=== PATIENT | female | born 1980 | race Caucasian/White ===

== ENCOUNTER 2017-05-29 11:55 | Inpatient (IN) | payer OTHER ==
[2017-05-29] MEDS ORDERED: Nalbuphine 10 MG/1 ML Vial IVPUSH PRN (17:14)
[2017-05-29] MEDS ORDERED: Water For Irrigation,Sterile 1,000 ML Container IRR PRN (17:14)
[2017-05-29] MEDS ORDERED: Sodium Chloride 0.9% 10 ML Syringe FLUSH PRN (17:14)
[2017-05-29] MEDS ORDERED: Terbutaline 1 MG/ML SDV SUBCUT PRN (17:14)
[2017-05-29] MEDS ORDERED: Lidocaine 1% 50 ML MDV INJECT PRN (17:14)
[2017-05-29] MEDS ORDERED: Sodium Chloride 0.9% 2.5 ML Syringe FLUSH PRN (17:14)
[2017-05-29] MEDS ORDERED: Butorphanol 1 MG/ML SDV IVPUSH PRN (17:14)
[2017-05-29] MEDS ORDERED: Misoprostol 200 MCG Tab PO PRN (17:14)
[2017-05-29] MEDS ORDERED: Misoprostol 25 MCG (1/4 of 100 MCG) Tab VAG PRN (17:14)
[2017-05-29] MEDS ORDERED: Methylergonovine 0.2 MG/1 ML Amp IM PRN (17:14)
[2017-05-29] MEDS ORDERED: Carboprost Tromethamine 250 MCG/1 ML Amp IM PRN (17:14)
[2017-05-29] MEDS ORDERED: Oxytocin/Lactated Ringers 30 UNIT/500 ML BAG IV SCH ×2 (17:15)
[2017-05-29] MEDS ORDERED: Misoprostol 25 MCG (1/4 of 100 MCG) Tab VAG SCH (17:15)
[2017-05-29] MEDS: Lactated Ringers 1,000 ML IV SCH (17:40)
[2017-05-30] MEDS: Lactated Ringers 1,000 ML IV SCH ×3 (08:44→11:11)
--- NOTE | 2017-05-30 09:28 | PCM.PREANE ---
Preanesthetic Assessment - Anesthesia/Transfusion/Family Hx Anesthesia History: Prior Anesthesia Without Reaction - Review of Systems General: No Symptoms Pulmonary: No Symptoms Cardiovascular: No Symptoms Gastrointestinal: No Symptoms Neurological: No Symptoms Other: Reports: None - Physical Assessment Height: 5 ft 5.5 in Weight: 78.925 kg ASA Class: 2 Mental Status: Alert & Oriented x3 Airway Class: Mallampati = 2 Dentition: Reports: Normal Dentition Thyro-Mental Finger Breadths: 3 Mouth Opening Finger Breadths: 3 ROM/Head Extension: Full Lungs: Clear to Auscultation, Normal Respiratory Effort Cardiovascular: Regular Rate, Regular Rhythm - Lab Values: Laboratory Last Values WBC 9.24 K/uL (4.0-11.0) 05/29/17 17: RBC 3.59 M/uL (4.30-5.90) L 05/29/17 17:31 Hgb 11.5 g/dL (12.0-16.0) L 05/29/17 17: Hct 32.9 % (36.0-46.0) L 05/29/17 17: MCV 91.6 fL (80.0-98.0) 05/29/17 17: MCH 32.0 pg (27.0-32.0) 05/29/17 17: MCHC 35.0 g/dL (31.0-37.0) 05/29/17 17:31 RDW Std Deviation 44.2 fl (28.0-62.0) 05/29/17 17:31 RDW Coeff of Jodi 13 % (11.0-15.0) 05/29/17 17: Plt Count 213 K/uL (150-400) 05/29/17 17:31 MPV 11.20 fL (7.40-12.00) 05/29/17 17:31 Nucleated RBC % 0.0 /100WBC 05/29/17 17:31 Nucleated RBCs # 0 K/uL 05/29/17 17:31 Blood Type A POSITIVE 05/29/17 17:31 Antibody Screen NEGATIVE 05/29/17 17:31 - Allergies Allergies/Adverse Reactions: Allergies Allergy/AdvReac Type Severity Reaction Status Date / Time No Known Allergies Allergy Verified 05/12/16 12:57 - Acknowledgements Anesthesia Type Planned: Epidural Pt an Appropriate Candidate for the Planned Anesthesia: Yes Alternatives and Risks of Anesthesia Discussed w Pt/Guardian: Yes Pt/Guardian Understands and Agrees with Anesthesia Plan: Yes PreAnesthesia Questionnaire HEENT History: Reports: None Cardiovascular History: Reports: None Respiratory History: Reports: None Gastrointestinal History: Reports: GERD Genitourinary History: Reports: None [employer]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: Reports: : 4 Para: 3 LMP (Approximate): Other OB/BYN History: 3 preg - 3 births Musculoskeletal History: Reports: None Neurological History: Reports: None Psychiatric History: Reports: None Endocrine/Metabolic History: Reports: None Hematologic History: Reports: None Immunologic History: Reports: None Oncologic (Cancer) History: Reports: None - Infectious Disease History Infectious Disease History: Reports: Chicken Pox, Mononucleosis - Past Surgical History GI Surgical History: Reports: Appendectomy - SUBSTANCE USE Smoking Status *Q: Never Smoker Second Hand Smoke Exposure: No Recreational Drug Use History: No - HOME MEDS Home Medications: Home Meds Amoxicillin 500 mg PO BID #20 tab 05/12/16 [Rx] Hydrocort/Neomycin/Polymyxin B [Cortisporin Otic Susp] 2 drop EARRT QID #1 bottle 05/12/16 [Rx] Prednisone [IJD: predniSONE] 1 tab PO WITHBREAKFAST #7 tab 05/12/16 [Rx] guaiFENesin/Codeine Phosphate [Cheratussin AC Syrup] 10 ml PO Q6HR #240 liquid 05/12/16 [Rx] - CURRENT (IN HOUSE) MEDS Current Meds: Current Medications Butorphanol Tartrate (Stadol) 1 mg IVPUSH Q1H PRN PRN Reason: Pain Carboprost Tromethamine (Hemabate Ds) 250 mcg IM ASDIRECTED PRN PRN Reason: Post Hemorrhage Lactated Ringer's (Ringers, Lactated) 1,000 mls @ 150 mls/hr IV ASDIRECTED ELISA Last Admin: 05/30/17 08:44 Dose: 150 mls/hr Oxytocin/Lactated Ringer's (Pitocin In Lr 30 Units/500 Ml) 30 unit in 500 mls @ 2 mls/hr IV TITRATE ELISA; 2 MUNITS/MIN PRN Reason: Protocol Stop: 05/30/17 17:14 Oxytocin/Lactated Ringer's (Pitocin In Lr 30 Units/500 Ml) 30 unit in 500 mls @ 2 mls/hr IV TITRATE ELISA; 2 MUNITS/MIN PRN Reason: Protocol Last Admin: 05/30/17 06:55 Dose: 2 munits/min, 2 mls/hr Lidocaine HCl (Xylocaine 1%) 50 ml INJECT .ONCE PRN PRN Reason: Laceration repair Methylergonovine Maleate (Methergine) 0.2 mg IM ASDIRECTED PRN PRN Reason: Post Hemorrhage Misoprostol (Cytotec) 200 mcg PO .ONCE PRN PRN Reason: Post Hemorrhage Misoprostol (Cytotec) 25 mcg VAG .ONCE ELISA Last Admin: 05/29/17 17:53 Dose: 25 mcg Misoprostol (Cytotec) 25 mcg VAG Q6H PRN PRN Reason: Cervical Ripening Stop: 05/31/17 11:15 Last Admin: 05/30/17 00:14 Dose: 25 mcg Sodium Chloride (Saline Flush) 10 ml FLUSH ASDIRECTED PRN PRN Reason: Keep Vein Open Sodium Chloride (Saline Flush) 2.5 ml FLUSH ASDIRECTED PRN PRN Reason: Keep Vein Open Sterile Water (Sterile Water For Irrigation) 1,000 ml IRR ASDIRECTED PRN PRN Reason: delivery Terbutaline Sulfate (Brethine) 0.25 mg SUBCUT ASDIRECTED PRN PRN Reason: Tacysystole Discontinued Medications Nalbuphine HCl (Nubain) 10 mg IVPUSH Q1H PRN PRN Reason: Pain (severe 7-10) Stop: 05/29/17 19:15
[2017-05-30] MEDS ORDERED: fentaNYL 100 MCG/2 ML SDV ONE (09:30)
[2017-05-30] MEDS ORDERED: Ropivacaine HCl/PF 100 ML ONE (09:30)
[2017-05-30] MEDS ORDERED: ePHEDrine 50 MG/ML SDV ONE (09:52)
[2017-05-30] MEDS ORDERED: Docusate Sodium 100 MG Cap PO PRN (12:29)
[2017-05-30] MEDS ORDERED: Witch Hazel Medicated Pads 40/Jar TOP PRN (12:29)
[2017-05-30] MEDS ORDERED: Methylergonovine 0.2 MG/1 ML Amp IM PRN (12:29)
[2017-05-30] MEDS ORDERED: Bisacodyl 10 MG Supp RECTAL PRN (12:29)
[2017-05-30] MEDS ORDERED: Lanolin 100% Cream 7 GM Tube TOP PRN (12:29)
[2017-05-30] MEDS ORDERED: Benzocaine/Menthol 20%-0.5% Spray 78 GM Cannister TOP PRN (12:29)
[2017-05-30] MEDS: Ibuprofen 800 MG Tab PO PRN (15:59)
--- NOTE | 2017-05-30 16:52 | OR ---
SURGEON: Maria Guadalupe Nixon M.D. DATE OF PROCEDURE: 05/30/2017 PREOPERATIVE DIAGNOSIS: A 39 and 3/7th weeks intrauterine , lives remote from the hospital with vulvar lesion. POSTOPERATIVE DIAGNOSIS: A 39 and 3/7th weeks intrauterine , lives remote from the hospital with vulvar lesion. PROCEDURES: Cytotec and Pitocin induction of labor, term spontaneous vaginal delivery with repair of second-degree laceration and excision of a vulvar cyst. ANESTHESIA: Epidural. ESTIMATED BLOOD LOSS: Less than 300 mL. FINDINGS: Live born female, score 8 and 9. Weight is pending at the time of dictation. The placenta was spontaneous, Schultze intact with 3 vessels. There was a second-degree perineal laceration over the area of prior laceration where there was a 3 cm inflammatory cyst from prior suture which was excised. COMPLICATIONS: None known. DISPOSITION: Mother and baby are in stable in LDRP. BRIEF HISTORY: This is a 37-year-old female G4, P3. She presents at 39 and 3/7th weeks' gestation for induction of labor, living approximately 1 hour from the facility. While her inductions are prolonged, her labor after 4 cm is very fast and therefore, she presents for history of rapid labors. She has a known cyst within the vulva. We discussed if it is appropriate excising this at the time of delivery. She was admitted to Labor and Delivery. She was 1 cm and very thick. She received 2 doses of Cytotec, by morning, she was 4 cm. She received an epidural for pain control. Pitocin was started at 2 milliunits per minute and was not increased. She had spontaneous rupture of membranes. She is group B strep negative. She had category 1 heart tones throughout labor until the last 10 minutes when she was pushing and she progressed to complete. DESCRIPTION OF PROCEDURE: With the patient in dorsal lithotomy position, under adequate epidural analgesia, the patient pushed over a 10-minute time period to a 5+ station, at which time the head was delivered spontaneously and atraumatically over the perineum with support with subsequent delivery of the infant's shoulders and body without any difficulty. The was bulb suctioned by nose and mouth and handed to the mother in the presence of the nurse attending delivery. The infant was a liveborn female, score 8 and 9. Weight is pending at the time of dictation. After the cord had ceased to pulsate, it was doubly clamped and cut. The cord blood was collected for cord ABGs as well as routine cord blood sampling. Pitocin was initiated after delivery of the infant to assist with delivery of the placenta which was delivered spontaneously, Schultze intact with 3 vessels. Upon inspection of the pelvis and perineum, there was a small second-degree laceration, however, this was immediately over a very large perineal cyst and I did confirm with the patient that she desired excision of the cyst at this time. Therefore, the cyst wall was completely excised intact and the cyst was not broken. The perineal laceration was repaired with a running locked suture of 2-0 Caprosyn for the vaginal mucosa. A deep running suture of the same for the perineum and to close the defect from the cyst and a running subcuticular suture of the same for the skin. Final sponge, needle, and instrument count were correct. There were no known complications. Manly and mother are in LDRP in good condition. ALVARO / IRMA /[id number]
[2017-05-30] MEDS: Acetaminophen 500 MG Tab PO PRN (19:36)
[2017-05-31] MEDS: Ibuprofen 800 MG Tab PO PRN (06:54)
[2017-05-31] MEDS: oxyCODONE 5 MG Tab PO PRN ×2 (06:55→11:56)
--- NOTE | 2017-05-31 07:37 | PCM48HPAN ---
Post Anesthesia Note - EVALUATION WITHIN 48HRS OF ANESTHETIC Vital Signs in Normal Range: Yes Patient Participated in Evaluation: Yes Respiratory Function Stable: Yes Airway Patent: Yes Cardiovascular Function Stable: Yes Hydration Status Stable: Yes Pain Control Satisfactory: Yes Nausea and Vomiting Control Satisfactory: Yes Mental Status Recovered: Yes
[2017-05-31 07:48] VITALS: BP 102/70
--- NOTE | 2017-05-31 08:23 | PCM.PNPP ---
[id number] Status: Reports: Pain Controlled, Tolerating Diet, Ambulating, Urinating - Review of Systems General: Denies: Fever Pulmonary: Denies: Shortness of Breath, Pleuritic Chest Pain, Cough Cardiovascular: Denies: Chest Pain, Palpitations, Dyspnea on Exertion Gastrointestinal: Denies: Abdominal Pain Genitourinary: Denies: Dysuria Psychiatric: Reports: No Symptoms - General Info Date of Service: 05/31/17 - Patient Data Vital Signs - most recent: Last Vital Signs Temp 36.6 C 05/31/17 07:44 Pulse 69 05/31/17 07:44 Resp 16 05/31/17 07:44 BP 102/70 05/31/17 07:44 Pulse Ox 97 05/31/17 07:44 Weight - most recent: 78.925 kg Lab Results - last 24 hrs: Laboratory Results - last 24 hr 05/31/17 Range/Units 04:40 Hgb 10.8 L (12.0-16.0) g/dL Hct 31.9 L (36.0-46.0) % Med Orders - Current: Current Medications Acetaminophen (Tylenol Extra Strength) 1,000 mg PO Q4H PRN PRN Reason: Pain Last Admin: 05/30/17 19:36 Dose: 1,000 mg Benzocaine/Menthol (Dermoplast Pain Relief 20%-0.5% [place]) 78 gm TOP ASDIRECTED PRN PRN Reason: Perineal Comfort Measure Last Admin: 05/30/17 13:36 Dose: 1 can Bisacodyl (Dulcolax) 10 mg RECTAL .ONCE PRN PRN Reason: Constipation Docusate Sodium (Colace) 100 mg PO BID PRN PRN Reason: Constipation Last Admin: 05/30/17 21:06 Dose: 100 mg Emollient Ointment (Lansinoh Hpa) 0 gm TOP ASDIRECTED PRN PRN Reason: Sore Nipples Last Admin: 05/30/17 13:36 Dose: 1 tube Ibuprofen (Motrin) 800 mg PO Q6H PRN PRN Reason: Pain Last Admin: 05/31/17 06:54 Dose: 800 mg Methylergonovine Maleate (Methergine) 0.2 mg IM .ONCE PRN PRN Reason: Excessive Vaginal Bleeding Oxycodone HCl (Oxycodone) 5 mg PO Q2H PRN PRN Reason: Pain Last Admin: 05/31/17 06:55 Dose: 5 mg Witch Paz (Tucks) 1 pad TOP ASDIRECTED PRN PRN Reason: comfort care Last Admin: 05/30/17 13:36 Dose: 1 tub Discontinued Medications Butorphanol Tartrate (Stadol) 1 mg IVPUSH Q1H PRN PRN Reason: Pain Carboprost Tromethamine (Hemabate Ds) 250 mcg IM ASDIRECTED PRN PRN Reason: Post Hemorrhage Ephedrine Sulfate (Ephedrine Sulfate) Confirm Administered Dose 50 mg .ROUTE .STK-MED ONE Stop: 05/30/17 09:53 Fentanyl (Sublimaze) Confirm Administered Dose 100 mcg .ROUTE .STK-MED ONE Stop: 05/30/17 09:31 Lactated Ringer's (Ringers, Lactated) 1,000 mls @ 150 mls/hr IV ASDIRECTED ELISA Last Admin: 05/30/17 11:11 Dose: 150 mls/hr Oxytocin/Lactated Ringer's (Pitocin In Lr 30 Units/500 Ml) 30 unit in 500 mls @ 2 mls/hr IV TITRATE ELISA; 2 MUNITS/MIN PRN Reason: Protocol Stop: 05/30/17 17:14 Oxytocin/Lactated Ringer's (Pitocin In Lr 30 Units/500 Ml) 30 unit in 500 mls @ 2 mls/hr IV TITRATE ELISA; 2 MUNITS/MIN PRN Reason: Protocol Last Titration: 05/30/17 11:56 Dose: 999 mls/hr Ropivacaine (Naropin 0.2%) Confirm Administered Dose 100 mls @ as directed .ROUTE .STK-MED ONE Stop: 05/30/17 09:31 Lidocaine HCl (Xylocaine 1%) 50 ml INJECT .ONCE PRN PRN Reason: Laceration repair Methylergonovine Maleate (Methergine) 0.2 mg IM ASDIRECTED PRN PRN Reason: Post Hemorrhage Misoprostol (Cytotec) 200 mcg PO .ONCE PRN PRN Reason: Post Hemorrhage Misoprostol (Cytotec) 25 mcg VAG .ONCE ELISA Last Admin: 05/29/17 17:53 Dose: 25 mcg Misoprostol (Cytotec) 25 mcg VAG Q6H PRN PRN Reason: Cervical Ripening Stop: 05/31/17 11:15 Last Admin: 05/30/17 00:14 Dose: 25 mcg Nalbuphine HCl (Nubain) 10 mg IVPUSH Q1H PRN PRN Reason: Pain (severe 7-10) Stop: 05/29/17 19:15 Sodium Chloride (Saline Flush) 10 ml FLUSH ASDIRECTED PRN PRN Reason: Keep Vein Open Sodium Chloride (Saline Flush) 2.5 ml FLUSH ASDIRECTED PRN PRN Reason: Keep Vein Open Sterile Water (Sterile Water For Irrigation) 1,000 ml IRR ASDIRECTED PRN PRN Reason: delivery Last Admin: 05/30/17 13:36 Dose: 1,000 ml Terbutaline Sulfate (Brethine) 0.25 mg SUBCUT ASDIRECTED PRN PRN Reason: Tacysystole - Interaction Infant Disposition, : in Room with Family Interaction: Holding Feeding: Attempted ; Nursed Fair/Poor Support Person: - Recovery Exam Fundal Tone: Firm Fundal Level: At Umbilicus Fundal Placement: Left Lochia Amount: Scant Lochia Color: Rubra/Red Perineum Description: Intact, Minimal Bruising/Swelling Episiotomy/Laceration: Approximated Bladder Status: Voiding Urinary Elimination: Voided - Exam General: alert, oriented Neck: supple Lungs: Clear to Auscultation, Normal Respiratory Effort Cardiovascular: Regular Rate, Regular Rhythm GI/Abdominal Exam: Normal Bowel Sounds, Soft, Non-Tender, No Organomegaly, No Distention, No Abnormal Bruit, No Mass, Pelvis Stable Extremities: No Pedal Edema Psy/Mental Status: alert, normal affect, normal mood - Problem List & Annotations (1) Vaginal delivery SNOMED Code(s): 902231435 Code(s): O80 - ENCOUNTER FOR FULL-TERM UNCOMPLICATED DELIVERY Status: Acute Current Visit: Yes - Problem List Review Problem List Initiated/Reviewed/Updated: Yes - Assessment Assessment:: PPD#1 from . Minimal pain and lochia. Breast feeding well. Discharge home today. - Plan Plan:: Discharge instructions reviewed. Nothing in the vagina for 6 weeks. RX for Percocet to use as needed for pain. Continue PNV while breast feeding. Instructed patient to call if she develops fever greater than 101 or bleeding through a large pad an hour. F/U with [facility] in 6 weeks. <Maria Guadalupe Nixon - Last Filed: 05/31/17 10:04> - Patient Data Vital Signs - most recent: Last Vital Signs Temp 36.6 C 05/31/17 07:44 Pulse 69 05/31/17 07:44 Resp 16 05/31/17 07:44 BP 102/70 05/31/17 07:44 Pulse Ox 97 05/31/17 07:44 Lab Results - last 24 hrs: Laboratory Results - last 24 hr 05/31/17 Range/Units 04:40 Hgb 10.8 L (12.0-16.0) g/dL Hct 31.9 L (36.0-46.0) % Med Orders - Current: Current Medications Acetaminophen (Tylenol Extra Strength) 1,000 mg PO Q4H PRN PRN Reason: Pain Last Admin: 05/30/17 19:36 Dose: 1,000 mg Benzocaine/Menthol (Dermoplast Pain Relief 20%-0.5% [place]) 78 gm TOP ASDIRECTED PRN PRN Reason: Perineal Comfort Measure Last Admin: 05/30/17 13:36 Dose: 1 can Bisacodyl (Dulcolax) 10 mg RECTAL .ONCE PRN PRN Reason: Constipation Docusate Sodium (Colace) 100 mg PO BID PRN PRN Reason: Constipation Last Admin: 05/30/17 21:06 Dose: 100 mg Emollient Ointment (Lansinoh Hpa) 0 gm TOP ASDIRECTED PRN PRN Reason: Sore Nipples Last Admin: 05/30/17 13:36 Dose: 1 tube Ibuprofen (Motrin) 800 mg PO Q6H PRN PRN Reason: Pain Last Admin: 05/31/17 06:54 Dose: 800 mg Methylergonovine Maleate (Methergine) 0.2 mg IM .ONCE PRN PRN Reason: Excessive Vaginal Bleeding Oxycodone HCl (Oxycodone) 5 mg PO Q2H PRN PRN Reason: Pain Last Admin: 05/31/17 06:55 Dose: 5 mg Witch Paz (Tucks) 1 pad TOP ASDIRECTED PRN PRN Reason: comfort care Last Admin: 05/30/17 13:36 Dose: 1 tub Discontinued Medications Butorphanol Tartrate (Stadol) 1 mg IVPUSH Q1H PRN PRN Reason: Pain Carboprost Tromethamine (Hemabate Ds) 250 mcg IM ASDIRECTED PRN PRN Reason: Post Hemorrhage Ephedrine Sulfate (Ephedrine Sulfate) Confirm Administered Dose 50 mg .ROUTE .STK-MED ONE Stop: 05/30/17 09:53 Fentanyl (Sublimaze) Confirm Administered Dose 100 mcg .ROUTE .STK-MED ONE Stop: 05/30/17 09:31 Lactated Ringer's (Ringers, Lactated) 1,000 mls @ 150 mls/hr IV ASDIRECTED ELISA Last Admin: 05/30/17 11:11 Dose: 150 mls/hr Oxytocin/Lactated Ringer's (Pitocin In Lr 30 Units/500 Ml) 30 unit in 500 mls @ 2 mls/hr IV TITRATE ELISA; 2 MUNITS/MIN PRN Reason: Protocol Stop: 05/30/17 17:14 Oxytocin/Lactated Ringer's (Pitocin In Lr 30 Units/500 Ml) 30 unit in 500 mls @ 2 mls/hr IV TITRATE ELISA; 2 MUNITS/MIN PRN Reason: Protocol Last Titration: 05/30/17 11:56 Dose: 999 mls/hr Ropivacaine (Naropin 0.2%) Confirm Administered Dose 100 mls @ as directed .ROUTE .STK-MED ONE Stop: 05/30/17 09:31 Lidocaine HCl (Xylocaine 1%) 50 ml INJECT .ONCE PRN PRN Reason: Laceration repair Methylergonovine Maleate (Methergine) 0.2 mg IM ASDIRECTED PRN PRN Reason: Post Hemorrhage Misoprostol (Cytotec) 200 mcg PO .ONCE PRN PRN Reason: Post Hemorrhage Misoprostol (Cytotec) 25 mcg VAG .ONCE ELISA Last Admin: 05/29/17 17:53 Dose: 25 mcg Misoprostol (Cytotec) 25 mcg VAG Q6H PRN PRN Reason: Cervical Ripening Stop: 05/31/17 11:15 Last Admin: 05/30/17 00:14 Dose: 25 mcg Nalbuphine HCl (Nubain) 10 mg IVPUSH Q1H PRN PRN Reason: Pain (severe 7-10) Stop: 05/29/17 19:15 Sodium Chloride (Saline Flush) 10 ml FLUSH ASDIRECTED PRN PRN Reason: Keep Vein Open Sodium Chloride (Saline Flush) 2.5 ml FLUSH ASDIRECTED PRN PRN Reason: Keep Vein Open Sterile Water (Sterile Water For Irrigation) 1,000 ml IRR ASDIRECTED PRN PRN Reason: delivery Last Admin: 05/30/17 13:36 Dose: 1,000 ml Terbutaline Sulfate (Brethine) 0.25 mg SUBCUT ASDIRECTED PRN PRN Reason: Tacysystole - Problem List Review Problem List Initiated/Reviewed/Updated: Yes - My Orders Last 24 Hours: My Active Orders 05/30/17 12:29 Patient Status [ADT] Routine May Shower [RC] ASDIRECTED Up ad Tiffany [RC] ASDIRECTED Vital Signs [RC] PER UNIT ROUTINE Acetaminophen [Tylenol Extra Strength] 1,000 mg PO Q4H PRN Benzocaine/Menthol [Dermoplast Pain Relief 20%-0.5% [place]] 78 gm TOP ASDIRECTED PRN Bisacodyl [Dulcolax] 10 mg RECTAL .ONCE PRN Docusate Sodium [Colace] 100 mg PO BID PRN Ibuprofen [Motrin] 800 mg PO Q6H PRN Lanolin [Lansinoh HPA] See Dose Instructions TOP ASDIRECTED PRN Methylergonovine [Methergine] 0.2 mg IM .ONCE PRN Witch Paz [Tucks] 1 pad TOP ASDIRECTED PRN oxyCODONE 5 mg PO Q2H PRN Assess Lochia [WOMSER] Per Unit Routine Assess Uterine Involution [WOMSER] Per Unit Routine Peripheral IV Discontinue [OM.PC] Routine Resuscitation Status Routine 05/30/17 12:30 Perineal Care [OM.PC] Per Unit Routine 05/30/17 Lunch Regular Diet [DIET] - Plan Plan:: patient seen and examined, agree with above.
[2017-05-31] MEDS: Acetaminophen 500 MG Tab PO PRN (11:56)
== END 2017-05-31 14:45 | disposition home or self-care (01) | DRG 775 ==
LOC: MW.OB 11:55 → OBSVTOIN 05-30 11:55
PROVIDERS: ADMIT Obstetrics & Gynecology; ATTEND Obstetrics & Gynecology
PROC: 10E0XZZ Delivery of Products of Conception, External Approach (ICD-10-PCS; principal; 2017-05-30)
PROC: 0KQM0ZZ Repair Perineum Muscle, Open Approach (ICD-10-PCS; 2017-05-30)
PROC: 0UBMXZZ Excision of Vulva, External Approach (ICD-10-PCS; 2017-05-30)
PROC: 3E0P7GC Introduction of Other Therapeutic Substance into Female Reproductive, Via Natural or Artificial Opening (ICD-10-PCS; 2017-05-30)
PROC: 3E033VJ Introduction of Other Hormone into Peripheral Vein, Percutaneous Approach (ICD-10-PCS; 2017-05-30)
DX: O70.1 Second degree perineal laceration during delivery (principal); Z37.0 Single live birth; O09.523 Supervision of elderly multigravida, third trimester; O34.73 Maternal care for abnormality of vulva and perineum, third trimester; D49.89 Neoplasm of unspecified behavior of other specified sites; Z3A.39 39 weeks gestation of pregnancy
CPT/HCPCS: 01967; 36415; 59025; 85014; 85018; 85027; 86850; 86900; 86901; 88305; A9270-GY; J7120

== ENCOUNTER 2024-05-05 06:17 | Day surgery (SDC) | payer OTHER ==
[2024-05-05] MEDS: Lactated Ringers 1,000 ML IV SCH (06:46)
[2024-05-05] MEDS: Scopalamine 1mg/3day Transdermal Patch TOP ONE (07:00)
[2024-05-05] MEDS ORDERED: Bupivacaine 0.25% 30 ML SDV ONE (07:22)
[2024-05-05] MEDS ORDERED: Methylene Blue 100 MG/10 ML SDV ONE (07:22)
[2024-05-05] MEDS ORDERED: ceFAZolin 2 GM Vial ONE (07:26)
[2024-05-05] MEDS ORDERED: propofoL 50 ML ONE ×2 (07:26→08:54)
[2024-05-05] MEDS ORDERED: fentaNYL 250 MCG/5 ML SDV ONE ×3 (07:27→07:41)
[2024-05-05] MEDS ORDERED: Propofol 200 MG/20 ML SDV ONE ×2 (07:27→09:34)
[2024-05-05] MEDS ORDERED: fentaNYL 50 MCG/ML SDV IVPUSH PRN ×2 (07:30→07:38)
[2024-05-05] MEDS ORDERED: Metoclopramide 10 MG/2 ML SDV IVPUSH PRN ×2 (07:30→07:38)
[2024-05-05] MEDS ORDERED: Ondansetron 4 MG/2 ML SDV IVPUSH PRN ×3 (07:30→12:13)
[2024-05-05] MEDS ORDERED: Albuterol 0.083% 2.5 MG/3 ML Neb Soln NEB PRN ×2 (07:30→07:38)
[2024-05-05] MEDS ORDERED: droPERidol 5 MG/2 ML SDV IVPUSH PRN ×2 (07:30→07:38)
[2024-05-05] MEDS ORDERED: Morphine 2 MG/ML SYRINGE IVPUSH PRN ×3 (07:30→12:15)
[2024-05-05] MEDS ORDERED: HYDROmorphone 1 MG/ML Syringe IVPUSH PRN ×2 (07:30→07:38)
[2024-05-05] MEDS ORDERED: Naloxone 0.4 MG/ML SDV IVPUSH PRN ×2 (07:30→07:38)
[2024-05-05] MEDS ORDERED: Dexamethasone 4 MG/ML 5 ML MDV ONE (07:34)
[2024-05-05] MEDS ORDERED: Rocuronium Bromide 50 MG/5 ML Syringe ONE ×3 (07:34→09:24)
[2024-05-05] MEDS ORDERED: Water For Injection, Sterile 20 ML ONE (07:34)
[2024-05-05] MEDS ORDERED: dexmedeTOMIDine HCl 200 MCG/2 ML SDV ONE (07:34)
[2024-05-05] MEDS ORDERED: Ondansetron 4 MG/2 ML SDV ONE (07:34)
[2024-05-05] MEDS ORDERED: Lidocaine 1% 5 ML VIAL ONE (07:37)
[2024-05-05] MEDS ORDERED: Ketamine HCL/NACL, ISO-OSM 50 MG/5 ML Syringe ONE (07:40)
[2024-05-05] MEDS ORDERED: Ketorolac 30 MG/ML SDV IVPUSH SCH (08:00)
[2024-05-05] MEDS ORDERED: Magnesium Sulfate (4.06 MEQ/ML) 5 GM/10 ML SDV ONE (08:07)
[2024-05-05] MEDS ORDERED: ePHEDrine 50 MG/ML SDV ONE (08:15)
[2024-05-05] MEDS ORDERED: Tranexamic Acid 1,000 MG/10 ML Vial ONE (08:56)
[2024-05-05] MEDS ORDERED: Furosemide 40 MG/4 ML VIAL ONE (09:15)
[2024-05-05] MEDS ORDERED: Fluorescein 5 ML Vial ONE (09:15)
[2024-05-05] MEDS ORDERED: Sugammadex Sodium 200 MG/2 ML VIAL IV ONE (09:19)
[2024-05-05] MEDS ORDERED: Ropivacaine 0.5% 5 MG/ML 30 ML SDV ONE (09:27)
[2024-05-05] MEDS ORDERED: Promethazine 25 MG/ML SDV IM PRN (12:13)
[2024-05-05] MEDS ORDERED: Lactated Ringers 1,000 ML IV SCH (12:30)
[2024-05-05] MEDS: Ketorolac 30 MG/ML SDV IVPUSH SCH (17:43)
[2024-05-05] MEDS: Ketorolac 30 MG/ML SDV ONE (23:24)
[2024-05-06] MEDS: Acetaminophen/oxyCODONE 325-5 MG Tab PO PRN (02:19)
[2024-05-06 06:12] LABS: BASOPHILS ABSOLUTE AUTO 0.02 K/uL (0.00-0.20); BASOPHILS PERCENT AUTO 0.2 % (0.0-1.0); HEMATOCRIT 30.7 % (37.0-47.0); HEMOGLOBIN 10.4 g/dL (12.0-16.0); IMMATURE GRAN ABSOLUTE AUTO 0.03 K/uL (0.00-0.05); IMMATURE GRAN PERCENT AUTO 0.3 % (0.0-0.4); LYMPHOCYTES ABSOLUTE AUTO 2.33 K/uL (1.00-4.80); LYMPHOCYTES PERCENT AUTO 25.4 % (24.0-44.0); MEAN CORPUSCULAR HEMOGLOBIN 32.3 pg (28.0-32.0); MEAN CORPUSCULAR HGB CONC 33.9 g/dL (32.0-36.0); MEAN CORPUSCULAR VOLUME 95.3 fL (83.0-99.0); MONOCYTES ABSOLUTE AUTO 0.52 K/uL (0.00-0.80); MONOCYTES PERCENT AUTO 5.7 % (0.0-8.0); NEUTROPHILS ABSOLUTE AUTO 6.26 K/uL (1.80-7.70); NEUTROPHILS PERCENT AUTO 68.4 % (41.0-71.0); PLATELET COUNT,PLT 257 K/uL (150-400); RED BLOOD CELL COUNT 3.22 M/uL (4.10-5.30); WHITE BLOOD CELL COUNT,WBC 9.16 K/uL (3.9-11.3)
[2024-05-06 06:34] LABS: CALCIUM 7.9 mg/dL (8.5-10.1); CARBON DIOXIDE,CO2 24.4 mmol/L (21.0-32.0); CREATININE 0.7 mg/dL (0.6-1.0); EST CRCL DRUG DOSING (CG) 94.21 mL/min
[2024-05-06 08:17] VITALS: BP 79/47; PULSE 55
== END 2024-05-06 11:34 | disposition home or self-care (01) ==
LOC: MW.SDS 06:17 → MW.OB 10:47 → MW.SDS 05-06 11:34
PROVIDERS: ATTEND Obstetrics & Gynecology
DX: N83.8 Other noninflammatory disorders of ovary, fallopian tube and broad ligament (principal); N92.0 Excessive and frequent menstruation with regular cycle; K21.9 Gastro-esophageal reflux disease without esophagitis
CPT/HCPCS: 36415; 58552; 64488; 80048; 85025; A9270; J0131; J0665; J0690; J1100; J1885; J1940; J2704; J2795; J3010; J3475; J3490; J7120; Q9968; 00944; J2405